=== PATIENT | male | born 1955 | race American Indian/Alaskan Native ===

== ENCOUNTER 2017-11-22 08:11 | Emergency (ER) | payer MEDICAID ==
[~2017-11-22 08:11] MED LIST: ADRENALIN ONE; SODIUM BICARBONATE IV ONE
--- NOTE | 2017-11-22 08:23 | Emergency Department Report ---
HPI - General Time Seen by Provider: 11/22/17 08:18 - HPI HPI: Room 19 The patient is a 61-year-old male presenting with a chief complaint of cardiac arrest. Per EMS the patient was at home and the was unable to awaken him. Last known well time unknown by EMS. EMS was called and arrived on scene at 07:34 to find the patient in asystole. ACLS protocols were initiated with 3 rounds of epinephrine and 1 amp of sodium bicarbonate being administered. Patient was intubated with a Combitube which was removed by myself upon arrival to the ED. Patient was then intubated with an 8.0 ET tube and ACLS protocols continued. There was no return of spontaneous circulation. Location: Cardiovascular system Duration: [See above] Quality: Asystole Severity: Severe Modifying factors: [see above] Context: [see above] Mode of transportation: [not driving] ED Past Medical Hx - Past Medical History Additional medical history: Unknown - Family History Family history: no significant - Social History Smoking Status: Unknown if ever smoked ED Review of Systems ROS: Stated complaint: CARDIAC ARREST Other details as noted in HPI Comment: Unobtainable due to pts medical conditions Physical Exam - Physical Exam Physical Exam: GENERAL: The patient is well-developed well-nourished male lying on after being bagged via Combitube and receiving chest compressions. [] HEENT: Normocephalic. Atraumatic. Copious food particles and serous fluid in the oropharynx. Unable to visualize left pupil. Right pupil 3 mm and nonreactive NECK: Trachea midline CHEST/LUNGS: No spontaneous respirations. Breath sounds equal bilaterally after intubation by myself HEART/CARDIOVASCULAR: Normal heart sounds. Asystole on monitor ABDOMEN: Abdomen is soft SKIN: There is no diaphoresis. NEURO: GCS 3T MUSCULOSKELETAL: There is no evidence of acute injury. ED Medical Decision Making - Differential Diagnosis cardiac arrest Critical care attestation.: If time is entered above; I have spent that time in minutes in the direct care of this critically ill patient, excluding procedure time. ED Disposition Clinical Impression: Cardiac arrest Disposition: DC-20 Is pt being admited?: No Does the pt Need Aspirin: No Condition: Poor Time of Disposition: 08:18 (patient )
== END 2017-11-22 13:10 ==
LOC: ED 08:11
DX: I46.9 Cardiac arrest, cause unspecified (principal)
CPT/HCPCS: J0171